=== PATIENT | female | born 1925 | race Caucasian/White ===

== ENCOUNTER 2016-10-09 11:52 | Emergency (ER) | payer SELFPAY ==
[~2016-10-09] VITALS: Ht 160 cm; Wt 70.5 kg
[~2016-10-09 11:52] MED LIST: ALUMINUM ACETATE TP; AQUAPHOR1 OI1 TP; ASPIR-LOW81 MG PO; ASPIR-LOX325 MG PO; ASPIRIN 81M81 MG/TA2 PO; ATIVAN 0.50.5 MG/TAB PO; CARAFATE S1 GM/10 ML PO; CEPHALEXIN500 M1 PO; CLARITIN 1010 MG/TAB PO; CLOBETASOL0.051 TP; COLACE 100100 MG/CAP PO; COLACE100 MG PO; DIFLUCAN150 MG PO; EYE PO; FIBER CHOICE1 CTB PO; FLONASE NASAL S16 GM NS; HCTZ 25MG TAB25 MG PO; IBUPROFEN2; LIDODERM 5% PATC1 EA TP; LOTRIMIN45CR TOP; MICARDIS 40MG40 MG PO; MICARDIS40 MG PO; MILK OF MA400 MG/5 M PO; MIRALAX PA17 GM/Dose PO; MIRALAX17 GM/DOSE PO; NASONEX SPRAY; NEXIUM PO; NORCO 325 MG-51 TAB PO; PEPCID20 MG PO; PEPTO BISM262 MG/15 PO; PROBIOTIC FORMU1 CAP PO; PROBIOTICA100 Milli1 PO; PROVENTIL0.09 MG/A1 IH; REGLAN 5MG T5 MG/TAB PO; SALINE MIST 4545 ML NS; TYLENOL 325MG325 MG PO; ULTRAM 50MG TAB50 MG PO; VALTREX1 GM PO; ZOFRAN 4MG T4 MG/TAB PO; [UNRECOGNIZED DRUG - OTHER] OU; [UNRECOGNIZED DRUG - REMARK]
[2016-10-09 12:22] VITALS: TEMP 97.8
[2016-10-09 14:22] LABS: BASO % 0.2 % (0.0-2.0); EOS # 0.1 (0.0-0.7); EOS % 0.9 % (0-4.0); GRAN # 5.1 (1.4-6.5); GRAN % 63.8 % (42.2-75.2); LYMPH # 2.3 (1.2-3.4); LYMPH % 28.9 % (20.0-51.0); MEAN CELL VOLUME 91 fl (80.0-100.0); MEAN CORPUSCULAR HGB CONC 33 g/dl (33.0-37.0); MEAN PLATELET VOLUME 10.4 fl (7.4-10.4); MONO # 0.5 (0.1-0.6); MONO % 6.1 % (1.7-9.3); PLATELET COUNT 200 K/mm3 (130-400); RED BLOOD COUNT 3.83 M/mm3 (4.10-5.30); WHITE BLOOD COUNT 8.1 K/mm3 (4.8-10.8)
[2016-10-09 14:29] LABS: HEMATOCRIT 34.9 % (37.0-47.0); HEMOGLOBIN 11.4 g/dl (12.5-16.0); MEAN CORPUSCULAR HEMOGLOBIN 30 pg (27.0-31.0)
[2016-10-09 14:35] LABS: ADJUSTED CALCIUM 9.7 mg/dL (8.4-10.2); ALBUMIN 3.5 gm/dL (3.5-5.0); BILIRUBIN,TOTAL 0.7 mg/dL (0.0-1.0); CALCIUM 9.3 mg/dL (8.4-10.2); CREATININE, serum 0.56 mg/dL (0.52-1.25); POTASSIUM 4.1 mmol/L (3.4-5.0); TOTAL PROTEIN 6.6 gm/dL (6.4-8.2)
[2016-10-09 17:05] VITALS: BP 124/79; PULSE 94
[2017-05-11] MEDS ORDERED: BONINE25 MG PO (17:22)
[2017-05-25] MEDS ORDERED: LIDODERM 5% PATC1 EA TP (12:21)
== END 2016-10-09 17:06 | disposition home or self-care (01) ==
LOC: COL.ER 11:52
PROVIDERS: Physician Assistant
DX: M54.6 Pain in thoracic spine (principal); G89.29 Other chronic pain; R60.0 Localized edema; I87.2 Venous insufficiency (chronic) (peripheral); D64.9 Anemia, unspecified
CPT/HCPCS: J1885; J2270

== ENCOUNTER 2016-11-06 14:02 | Emergency (ER) | payer SELFPAY ==
[~2016-11-06] VITALS: Ht 160 cm; Wt 68.2 kg
[2016-11-06 14:04] VITALS: PULSE 88; TEMP 98.3
[2016-11-06 15:19] LABS: PH 8 (5-8); SQUAMOUS EPITHELIAL 0-2 /hpf; URINE APPEARANCE Hazy; URINE BACTERIA None Seen /hpf; URINE BILIRUBIN Negative (NEGATIVE); URINE BLOOD Negative (NEGATIVE); URINE COLOR Yellow; URINE GLUCOSE Negative (NEGATIVE); URINE KETONE Trace (NEGATIVE); URINE WBC 0-2 /hpf
[2016-11-06 15:48] LABS: BASO % 0.1 % (0.0-2.0); EOS % 0.6 % (0-4.0); GRAN # 4.2 (1.4-6.5); GRAN % 63.1 % (42.2-75.2); HEMATOCRIT 37.7 % (37.0-47.0); HEMOGLOBIN 12.2 g/dl (12.5-16.0); LYMPH % 30.4 % (20.0-51.0); MEAN CELL VOLUME 93 fl (80.0-100.0); MEAN CORPUSCULAR HEMOGLOBIN 30 pg (27.0-31.0); MEAN CORPUSCULAR HGB CONC 32 g/dl (33.0-37.0); MEAN PLATELET VOLUME 10.5 fl (7.4-10.4); MONO # 0.4 (0.1-0.6); MONO % 5.7 % (1.7-9.3); PLATELET COUNT 228 K/mm3 (130-400); RED BLOOD COUNT 4.06 M/mm3 (4.10-5.30); REDCELL DISTRIBUTION WIDTH-CV 14.8 % (11.5-14.5); WHITE BLOOD COUNT 6.7 K/mm3 (4.8-10.8)
[2016-11-06 16:13] LABS: ADJUSTED CALCIUM 9.4 mg/dL (8.4-10.2); ALANINE AMINOTRANSFERASE 31 U/L (9-52); ALKALINE PHOSPHATASE 118 U/L (50-136); ANION GAP 9 mmol/L (7-16); BILIRUBIN,TOTAL 0.8 mg/dL (0.0-1.0); BLOOD UREA NITROGEN 13 mg/dL (7-17); C-REACTIVE PROTEIN 0.7 mg/dL (0.0-0.9); CALCIUM 9.4 mg/dL (8.4-10.2); CARBON DIOXIDE 27 mmol/L (22-30); CHLORIDE 101 mmol/L (98-107); CREATININE, serum 0.62 mg/dL (0.52-1.25); GLUCOSE 99 mg/dL (74-106); LIPASE 29 U/L (23-300); POTASSIUM 4.2 mmol/L (3.4-5.0); SODIUM 138 mmol/L (137-145); TOTAL PROTEIN 7.1 gm/dL (6.4-8.2)
[2016-11-06 16:18] LABS: B-TYPE NATRIURETIC PEPTIDE 91 pg/mL (0-450)
[2016-11-06] MEDS ORDERED: ATIVAN 0.50.5 MG/TAB PO (16:19)
[2016-11-06 16:23] LABS: TROPONIN-I < 0.012 ng/mL (0.000-0.034)
[2016-11-06 18:14] VITALS: BP 127/73
[2017-05-11] MEDS ORDERED: BONINE25 MG PO (17:22)
[2017-05-25] MEDS ORDERED: LIDODERM 5% PATC1 EA TP (12:21)
== END 2016-11-06 18:41 | disposition home or self-care (01) ==
LOC: COL.ER 14:02
PROVIDERS: Emergency Medicine
DX: R10.32 Left lower quadrant pain (principal); R10.12 Left upper quadrant pain; G89.29 Other chronic pain; M54.6 Pain in thoracic spine; F20.9 Schizophrenia, unspecified; F41.9 Anxiety disorder, unspecified; K21.9 Gastro-esophageal reflux disease without esophagitis
CPT/HCPCS: Q9967

== ENCOUNTER 2016-11-16 14:08 | Emergency (ER) | payer SELFPAY ==
[~2016-11-16] VITALS: Ht 160 cm; Wt 68.2 kg
[2016-11-16 14:12] VITALS: BP 122/82; PULSE 100; TEMP 98.2
[2017-05-11] MEDS ORDERED: BONINE25 MG PO (17:22)
[2017-05-25] MEDS ORDERED: LIDODERM 5% PATC1 EA TP (12:21)
== END 2016-11-16 16:28 | disposition home or self-care (01) ==
LOC: COL.ER 14:08
DX: M25.511 Pain in right shoulder (principal)
CPT/HCPCS: J1885; J2270

== ENCOUNTER 2016-11-28 20:03 | Emergency (ER) | payer SELFPAY ==
[~2016-11-28] VITALS: Ht 160 cm; Wt 68.2 kg
[2016-11-28 20:07] VITALS: BP 126/90; TEMP 97.7
[2016-11-28] MEDS ORDERED: DOXYCYCLINE 10100 MG PO ×2 (21:56→22:12)
[2016-11-28] MEDS ORDERED: ANTI-FUNGAL1% TP ×2 (21:56→22:12)
[2016-11-28 22:21] VITALS: PULSE 78
[2017-05-11] MEDS ORDERED: BONINE25 MG PO (17:22)
[2017-05-25] MEDS ORDERED: LIDODERM 5% PATC1 EA TP (12:21)
== END 2016-11-28 22:22 | disposition home or self-care (01) ==
LOC: COL.ER 20:03
DX: L03.116 Cellulitis of left lower limb (principal); L03.115 Cellulitis of right lower limb; B35.3 Tinea pedis; F20.9 Schizophrenia, unspecified

== ENCOUNTER 2016-12-06 16:22 | Emergency (ER) | payer SELFPAY ==
[~2016-12-06] VITALS: Ht 160 cm; Wt 68.2 kg
[~2016-12-06 16:22] MED LIST changes: +ANTI-FUNGAL1% TP; +DOXYCYCLINE 10100 MG PO
[2016-12-06] MEDS ORDERED: CEPHALEXIN500 M1 PO (17:15)
[2016-12-06 17:32] VITALS: BP 149/70; PULSE 114; TEMP 97.4
[2017-05-11] MEDS ORDERED: BONINE25 MG PO (17:22)
[2017-05-25] MEDS ORDERED: LIDODERM 5% PATC1 EA TP (12:21)
== END 2016-12-06 17:33 | disposition home or self-care (01) ==
LOC: COL.ER 16:22
DX: L03.116 Cellulitis of left lower limb (principal); L03.115 Cellulitis of right lower limb; R10.13 Epigastric pain; T36.4X5A Adverse effect of tetracyclines, initial encounter; I10 Essential (primary) hypertension

== ENCOUNTER 2016-12-17 10:15 | Emergency (ER) | payer SELFPAY ==
[~2016-12-17] VITALS: Ht 160 cm; Wt 72.7 kg
[2016-12-17] MEDS ORDERED: CEPHALEXIN500 M1 PO (10:57)
[2016-12-17 11:32] VITALS: BP 120/79; PULSE 103; TEMP 97.1
[2017-05-11] MEDS ORDERED: BONINE25 MG PO (17:22)
[2017-05-25] MEDS ORDERED: LIDODERM 5% PATC1 EA TP (12:21)
== END 2016-12-17 11:32 | disposition home or self-care (01) ==
LOC: COL.ER 10:15
DX: L03.116 Cellulitis of left lower limb (principal); B35.3 Tinea pedis; I10 Essential (primary) hypertension

== ENCOUNTER 2017-01-08 11:26 | Emergency (ER) | payer SELFPAY ==
[~2017-01-08] VITALS: Ht 160 cm; Wt 68.2 kg
[2017-01-08 11:29] VITALS: TEMP 98
[2017-01-08 12:57] LABS: BASO % 0.3 % (0.0-2.0); EOS # 0.1 (0.0-0.7); EOS % 2.1 % (0-4.0); GRAN # 3.6 (1.4-6.5); GRAN % 63.4 % (42.2-75.2); HEMATOCRIT 36.1 % (37.0-47.0); HEMOGLOBIN 11.6 g/dl (12.5-16.0); LYMPH # 1.5 (1.2-3.4); LYMPH % 25.9 % (20.0-51.0); MEAN CELL VOLUME 92 fl (80.0-100.0); MEAN CORPUSCULAR HEMOGLOBIN 30 pg (27.0-31.0); MEAN CORPUSCULAR HGB CONC 32 g/dl (33.0-37.0); MEAN PLATELET VOLUME 10.7 fl (7.4-10.4); MONO # 0.5 (0.1-0.6); PLATELET COUNT 229 K/mm3 (130-400); RED BLOOD COUNT 3.93 M/mm3 (4.10-5.30); REDCELL DISTRIBUTION WIDTH-CV 13.8 % (11.5-14.5); WHITE BLOOD COUNT 5.8 K/mm3 (4.8-10.8)
[2017-01-08 13:06] LABS: ADJUSTED CALCIUM 9.3 mg/dL (8.4-10.2); ALBUMIN 3.9 gm/dL (3.5-5.0); BILIRUBIN,TOTAL 0.7 mg/dL (0.0-1.0); CALCIUM 9.2 mg/dL (8.4-10.2); CREATININE, serum 0.55 mg/dL (0.52-1.25); POTASSIUM 4.3 mmol/L (3.4-5.0); TOTAL PROTEIN 6.8 gm/dL (6.4-8.2)
[2017-01-08 14:11] VITALS: BP 114/92; PULSE 102
[2017-05-11] MEDS ORDERED: BONINE25 MG PO (17:22)
[2017-05-25] MEDS ORDERED: LIDODERM 5% PATC1 EA TP (12:21)
== END 2017-01-08 14:25 | disposition home or self-care (01) ==
LOC: COL.ER 11:26
PROVIDERS: Physician Assistant
DX: R53.81 Other malaise (principal)

== ENCOUNTER 2017-01-18 20:17 | Emergency (ER) | payer SELFPAY ==
[~2017-01-18] VITALS: Ht 165.1 cm; Wt 68.2 kg
[2017-01-18 20:23] VITALS: TEMP 98.4
[2017-01-18 21:06] LABS: BASO % 0.5 % (0.0-2.0); EOS # 0.1 (0.0-0.7); EOS % 2.4 % (0-4.0); GRAN # 3.2 (1.4-6.5); GRAN % 54.5 % (42.2-75.2); HEMATOCRIT 34.5 % (37.0-47.0); HEMOGLOBIN 11.3 g/dl (12.5-16.0); LYMPH % 34.2 % (20.0-51.0); MEAN CELL VOLUME 90 fl (80.0-100.0); MEAN CORPUSCULAR HEMOGLOBIN 30 pg (27.0-31.0); MEAN CORPUSCULAR HGB CONC 33 g/dl (33.0-37.0); MEAN PLATELET VOLUME 10.7 fl (7.4-10.4); MONO # 0.5 (0.1-0.6); MONO % 8.2 % (1.7-9.3); PLATELET COUNT 238 K/mm3 (130-400); RED BLOOD COUNT 3.82 M/mm3 (4.10-5.30); WHITE BLOOD COUNT 5.9 K/mm3 (4.8-10.8)
[2017-01-18 21:19] LABS: ADJUSTED CALCIUM 9.1 mg/dL (8.4-10.2); ALANINE AMINOTRANSFERASE 18 U/L (9-52); ALBUMIN 3.7 gm/dL (3.5-5.0); ALKALINE PHOSPHATASE 102 U/L (50-136); ANION GAP 9 mmol/L (7-16); BILIRUBIN,TOTAL 0.5 mg/dL (0.0-1.0); BLOOD UREA NITROGEN 14 mg/dL (7-17); C-REACTIVE PROTEIN 0.6 mg/dL (0.0-0.9); CALCIUM 8.9 mg/dL (8.4-10.2); CARBON DIOXIDE 29 mmol/L (22-30); CHLORIDE 100 mmol/L (98-107); CREATININE, serum 0.52 mg/dL (0.52-1.25); GLUCOSE 99 mg/dL (74-106); LIPASE 37 U/L (23-300); POTASSIUM 4.4 mmol/L (3.4-5.0); SODIUM 137 mmol/L (137-145); TOTAL PROTEIN 6.6 gm/dL (6.4-8.2)
[2017-01-18 21:28] LABS: TROPONIN-I < 0.012 ng/mL (0.000-0.034)
[2017-01-18 21:41] LABS: PH 8 (5-8); SQUAMOUS EPITHELIAL None Seen /hpf; URINE APPEARANCE Clear; URINE BACTERIA None Seen /hpf; URINE BILIRUBIN Negative (NEGATIVE); URINE BLOOD Negative (NEGATIVE); URINE COLOR Yellow; URINE GLUCOSE Negative (NEGATIVE); URINE KETONE Negative (NEGATIVE); URINE RBC 0-2 /hpf; URINE UROBILINOGEN Negative (NEGATIVE); URINE WBC 0-2 /hpf
[2017-01-18] MEDS ORDERED: CARAFATE S1 GM/10 ML PO (22:08)
[2017-01-18 22:27] VITALS: BP 115/65; PULSE 86
[2017-05-11] MEDS ORDERED: BONINE25 MG PO (17:22)
[2017-05-25] MEDS ORDERED: LIDODERM 5% PATC1 EA TP (12:21)
== END 2017-01-18 22:28 | disposition home or self-care (01) ==
LOC: COL.ER 20:17
PROVIDERS: Emergency Medicine
DX: R10.13 Epigastric pain (principal); R11.0 Nausea; I10 Essential (primary) hypertension; F41.9 Anxiety disorder, unspecified; K21.9 Gastro-esophageal reflux disease without esophagitis; G89.29 Other chronic pain

== ENCOUNTER 2017-03-26 22:27 | Emergency (ER) | payer SELFPAY ==
[~2017-03-26] VITALS: Ht 167.6 cm; Wt 72.7 kg
[2017-03-26 22:34] VITALS: BP 113/55; TEMP 98.1
[2017-03-26] MEDS ORDERED: LOTRIMIN45CR TOP (23:27)
[2017-03-26] MEDS ORDERED: CEPHALEXIN500 M1 PO (23:27)
[2017-03-26 23:57] VITALS: PULSE 97
[2017-05-11] MEDS ORDERED: BONINE25 MG PO (17:22)
[2017-05-25] MEDS ORDERED: LIDODERM 5% PATC1 EA TP (12:21)
== END 2017-03-26 23:58 | disposition home or self-care (01) ==
LOC: COL.ER 22:27
DX: L03.116 Cellulitis of left lower limb (principal); B35.3 Tinea pedis; I10 Essential (primary) hypertension